=== PATIENT | female | born 1980 | race Caucasian/White ===

== ENCOUNTER 2018-10-16 22:19 | Emergency (ER) | payer MEDICAID ==
--- NOTE | 2018-10-16 23:44 | ED Physician Documentation ---
PD HPI HEENT - Stated complaint Stated Complaint: DENTAL PAIN - Chief complaint Chief Complaint: Heent - History obtained from History obtained from: Patient - History of Present Illness Timing - onset: How many days ago (2) Timing - duration: Days (2) Timing - details: Gradual onset, Constant, Waxing and waning Pain level now: 10 Location: Tooth Improves: Nothing Associated symptoms: No: Fever Recently seen: Not recently seen - Additional information Additional information: patient says her tooth broke few months ago while eating. she says she felt as though the tooth was "just hanging there", so she pulled the tooth out herself. She says she did not see a dentist and does not have one. She presents due to 2 days of increasing pain and swelling at the site of where the tooth had been. inadequate relief with ibuprofen. also took two tablets of "old" keflex belonging to a relative Review of Systems Constitutional: denies: Fever Throat: reports: Dental pain / toothache PD PAST MEDICAL HISTORY - Past Medical History Past Medical History: Yes Cardiovascular: Hypertension GI: GERD Psych: ADD/ADHD - Present Medications Home Medications: Ambulatory Orders Medication Instructions Recorded Confirmed Clindamycin HCl [Clindamycin 300MG 300 mg PO Q6H #28 capsule 10/16/18 CAP] Hydrocodone/Acetaminophen 1 - 2 each PO Q6H PRN #14 tablet 10/16/18 [Hydrocodon-Acetaminophen 5-325] - Allergies Allergies/Adverse Reactions: Allergies Allergy/AdvReac Type Severity Reaction Status Date / Time No Known Drug Allergies Allergy Verified 10/16/18 22:32 PD ED PE NORMAL - Vitals Vital signs reviewed: Yes - General General: Alert and oriented X 3, No acute distress, Well developed/nourished - HEENT HEENT: Moist mucous membranes, Other (no facial swelling) - Neck Neck: Supple, no meningeal sign PD ED PE EXPANDED - HEENT HEENT: Dental TTP (overall good dentition. tooth is absent: right maxillary 2nd premolar. there does not appear to be any remnant of the tooth and the gum appears to have healed over the site where the tooth had been . there is no obvious swelling, there is moderate TTP) Results - Vitals Vitals: Vital Signs - 24 hr 10/16/18 10/17/18 10/17/18 22:29 00:02 00:05 Temperature 36.7 C Heart Rate 90 76 Respiratory 18 17 18 Rate Blood Pressure 159/101 H 163/118 H O2 Saturation 99 99 Oxygen O2 Source Room air PD MEDICAL DECISION MAKING - ED course Complexity details: considered differential, d/w patient Departure - Departure Disposition: 01 Home, Self Care Clinical Impression: Pain, dental Condition: Good Instructions: ED Tooth Pain Prescriptions: Clindamycin HCl [Clindamycin 300MG CAP] 300 mg PO Q6H #28 capsule Hydrocodone/Acetaminophen [Hydrocodon-Acetaminophen 5-325] 1 - 2 each PO Q6H PRN #14 tablet PRN Reason: pain Comments: Follow up with dentist within 3-5 days Discharge Date/Time: 10/17/18 00:10
[2018-10-16] MEDS ORDERED: HYDROcod/ACETAM 5/325 MG TABLET PO STA (23:53)
[2018-10-16] MEDS ORDERED: CLINDAMYCIN 150 MG CAPSULE PO STA (23:57)
[2018-10-17 00:06] VITALS: BP 163/118
== END 2018-10-17 00:10 | disposition home or self-care (01) ==
LOC: ED 22:19
DX: K08.89 Other specified disorders of teeth and supporting structures (principal); I10 Essential (primary) hypertension
CPT/HCPCS: 99282; 99283; A9270